=== PATIENT | female | born 1955 | race African-American/Black ===

== ENCOUNTER 2017-08-13 18:17 | Observation (INO) | payer OTHER ==
[~2017-08-13] VITALS: Ht 172.7 cm; Wt 110.0 kg
[2017-08-13] VITALS (7 sets, daily range): BP systolic 132–180; BP diastolic 62–85; PULSE 62–90; RESP 12–20; TEMP 98.1–98.2; O2SAT 97–100
[~2017-08-13 18:17] MED LIST: ASPI81CH6 CHEW; AZEL20CR TOPICAL; CLON0.1T PO; CROM100C PO; DOXY100C PO; ESTR0.62 VAGINAL; LEXA10TA PO; ROSU20 PO; VITA10003 PO
[2017-08-13] MEDS ORDERED: SODIUM CHLORIDE 0.9% FLUSH 10 ML FLUSH IVF PRN (18:45)
[2017-08-13] MEDS ORDERED: ASPIRIN 81 MG CHEW TAB PO ONE (18:45)
--- NOTE | 2017-08-13 18:45 | PD ---
HPI Chief Complaint: Pain: Acute or Chronic Time Seen by Provider: 18:37 Travel History International Travel<30 days: No Contact w/Intl Traveler<30days: No Traveled to known affect area: No History of Present Illness HPI 62-year-old female with history of hyperlipidemia presents for evaluation of chest pain. She reports over the past several months she has had intermittent left-sided chest pain which she describes as sharp, intermittent, usually lasting only for a few minutes at a time and coming on randomly. No obvious aggravating or relieving factors. Today she had similar pain that woke her up from sleep at 3 AM. She has had the pain intermittently throughout the day. Her primary care physician told her that if symptoms worsen that she should come to the emergency room and this is why she is here for evaluation today. Currently she is expensing mild soreness in the left side of her chest. She denies any cough, congestion, shortness of breath, nausea, vomiting, abdominal pain, leg swelling. She has not had a stress test since the . Her primary care physician was trying to set up an outpatient stress test for her in June but it never materialized. She has no other complaints at this time. She reports paternal history of coronary artery disease. PFSH Past Medical History Depression: Yes Heart Rhythm Problems: No Cancer: No Cardiac Catheterization: No Cardiovascular Problems: Yes (MUMUR - NO TREATMENT REQUIRED) High Cholesterol: Yes Congestive Heart Failure: No Diabetes: No Diminished Hearing: No Endocrine: No Genitourinary: Yes ("DIVERTICULITIS OF BLADDER") Hepatitis: No Hiatal Hernia: No Hypertension: No Immune Disorder: No Musculoskeletal: Yes (OSTEOARTHRITIS LEFT HIP, RIGHT HIP) Neurologic: No Psychiatric: Yes (ANXIETY & DEPRESSION ) Respiratory: No Myocardial Infarction: No Thyroid Disease: No Tubal Ligation: Yes Past Surgical History AICD: No Body Medical Devices: NONE Coronary Artery Bypass Graft: No Gynecologic Surgery: Yes (TUBAL LIGATION; HYSTERECTOMY) Hysterectomy: Yes Joint Replacement: No Pacemaker: No Other Surgery: Yes Social History Alcohol Use: Yes (RARE OCCASSIONS) Tobacco Use: No Substance Use: No Allergies-Medications (Allergen,Severity, Reaction): Coded Allergies: Sulfa (Sulfonamide Antibiotics) (Unverified Allergy, Severe, Rash, 08/13/17) doxycycline (Unverified Allergy, Mild, 06/10/17) RASH minocycline (Unverified Allergy, Mild, 23/18) RASH tigecycline (Unverified Allergy, Mild, 08/13/17) RASH Reported Meds & Prescriptions Reported Meds & Active Scripts Active Doxycycline Hyclate 100 Mg Cap 100 Mg PO DAILY Reported Claritin (Loratadine) 10 Mg Tablet 10 Mg PO DAILY Cromolyn Nasal Inh 5.2 Mg/Act [place] 1 [place] EACH NARE QID PRN Aspirin Low Dose (Aspirin) 81 Mg Chew 81 Mg CHEW DAILY Review of Systems Except as stated in HPI: all other systems reviewed are Neg Physical Exam Narrative GENERAL: Pleasant well-developed well-nourished female in no acute distress. SKIN: Warm and dry. HEAD: Atraumatic. Normocephalic. EYES: Pupils equal and round. No scleral icterus. No injection or drainage. ENT: No nasal bleeding or discharge. Mucous membranes pink and moist. NECK: Trachea midline. No JVD. CARDIOVASCULAR: Regular rate and rhythm. No murmur appreciated. RESPIRATORY: No accessory muscle use. Clear to auscultation. Breath sounds equal bilaterally. GASTROINTESTINAL: Abdomen soft, non-tender, nondistended. Hepatic and splenic margins not palpable. MUSCULOSKELETAL: No obvious deformities. There is no edema. There is a little bit of tenderness to palpation inferior to the left breast. NEUROLOGICAL: Awake and alert. No obvious cranial nerve deficits. Motor grossly within normal limits. Normal speech. PSYCHIATRIC: Appropriate mood and affect; insight and judgment normal. Data Data Last Documented VS Vital Signs Date Time Temp Pulse Resp B/P (MAP) Pulse Ox O2 Delivery O2 Flow Rate FiO2 08/13/17 18:47 97 Room Air 08/13/17 18:47 72 18 08/13/17 18:20 98.2 Orders Orders Electrocardiogram (08/13/17 18:37) Basic Metabolic Panel (Bmp) (08/13/17 18:37) Ckmb (Isoenzyme) Profile (08/13/17 18:37) Complete Blood Count With Diff (08/13/17 18:37) Magnesium (Mg) (08/13/17 18:37) Prothrombin Time / Inr (Pt) (08/13/17 18:37) Act Partial Throm Time (Ptt) (08/13/17 18:37) Troponin I (08/13/17 18:37) Chest, Single Ap (08/13/17 18:37) Ecg Monitoring (08/13/17 18:37) Bilateral Bp Monitoring (08/13/17 18:37) Iv Access Insert/Monitor (08/13/17 18:37) Oximetry (08/13/17 18:37) Oxygen Administration (08/13/17 18:37) Aspirin Chew (Aspirin Chew) (08/13/17 18:45) Sodium Chloride 0.9% Flush (Ns Flush) (08/13/17 18:45) CKMB (08/13/17 18:43) CKMB% (08/13/17 18:43) Admit Order (Ed Use Only) (08/13/17 20:10) Activity Bed Rest With Brp (08/13/17 20:10) Vital Signs (Adult) Q4H (08/13/17 20:10) Cardiac Rhythm .As Directed (08/13/17 20:10) Notify Dr: Other .PRN (08/13/17 20:10) Notify Parameters (08/13/17 20:10) Resp Oxygen Nasal Cannula (08/13/17 ) Ckmb (Isoenzyme) Profile (08/13/17 21:43) Ckmb (Isoenzyme) Profile (08/14/17 00:43) Troponin I (08/13/17 21:43) Troponin I (08/14/17 00:43) Electrocardiogram (08/13/17 21:43) Electrocardiogram (08/14/17 00:43) ^ Obtain (08/13/17 20:10) Sodium Chloride 0.9% Flush (Ns Flush) (08/13/17 20:15) Sodium Chloride 0.9% Flush (Ns Flush) (08/13/17 21:00) Npo After Midnight W/ Po Meds (08/14/17 Breakfast) Nitroglycerin 0.4 Mg Q5m X3 (08/13/17 20:30) Labs Laboratory Tests Test 08/13/17 18:43 White Blood Count 7.3 TH/MM3 Red Blood Count 4.39 MIL/MM3 Hemoglobin 13.5 GM/DL Hematocrit 38.4 % Mean Corpuscular Volume 87.5 FL Mean Corpuscular Hemoglobin 30.6 PG Mean Corpuscular Hemoglobin Concent 35.0 % Red Cell Distribution Width 14.0 % Platelet Count 266 TH/MM3 Mean Platelet Volume 7.9 FL Neutrophils (%) (Auto) 62.0 % Lymphocytes (%) (Auto) 31.4 % Monocytes (%) (Auto) 5.1 % Eosinophils (%) (Auto) 0.9 % Basophils (%) (Auto) 0.6 % Neutrophils # (Auto) 4.5 TH/MM3 Lymphocytes # (Auto) 2.3 TH/MM3 Monocytes # (Auto) 0.4 TH/MM3 Eosinophils # (Auto) 0.1 TH/MM3 Basophils # (Auto) 0.0 TH/MM3 CBC Comment DIFF FINAL Differential Comment Prothrombin Time 10.0 SEC Prothromb Time International Ratio 1.0 RATIO Activated Partial Thromboplast Time 28.0 SEC Blood Urea Nitrogen 18 MG/DL Creatinine 1.39 MG/DL Random Glucose 101 MG/DL Calcium Level 9.1 MG/DL Magnesium Level 2.0 MG/DL Sodium Level 140 MEQ/L Potassium Level 3.8 MEQ/L Chloride Level 105 MEQ/L Carbon Dioxide Level 30.6 MEQ/L Anion Gap 4 MEQ/L Estimat Glomerular Filtration Rate 47 ML/MIN Total Creatine Kinase 116 U/L Creatine Kinase MB LESS THAN 0.5 NG/ML Troponin I LESS THAN 0.02 NG/ML MDM Medical Decision Making Medical Screen Exam Complete: Yes Emergency Medical Condition: Yes Medical Record Reviewed: Yes Differential Diagnosis Angina, acute coronary syndrome, pleurisy, costochondritis, pericarditis, myocarditis, GERD, pneumothorax Narrative Course 62-year-old female with atypical chest pain intermittently for several months, worse today. The patient will be placed on ECG monitoring and pulse oximetry. A 12-lead EKG will be obtained. Plan is for lab work, chest x-ray. She will be given full dose aspirin. Initial lab work and imaging studies have been reviewed and found to be reassuring. I did discuss with her primary care physician who agrees with admission to the chest pain center for serial cardiac enzymes and rule out purposes. Discussed with the patient who is agreeable. Diagnosis Primary Impression: Chest pain Admitting Information Admitting Physician Requests: Rigoberto Durham Aug 13, 2017 18:45
[2017-08-13] MEDS ORDERED: CLAR10TA7 PO (18:56)
[2017-08-13] MEDS ORDERED: CROM5.2S4 EACH NARE (18:56)
--- NOTE | 2017-08-13 18:58 | RADRPT ---
EXAM DATE/TIME: 08/13/2017 18:45 [facility] COMPARISON: No previous studies available for comparison. INDICATIONS : Chest pain. MEDICAL HISTORY : None. SURGICAL HISTORY : None. ENCOUNTER: Initial ACUITY: 1 day PAIN SCORE: 10/10 LOCATION: Bilateral chest FINDINGS: The lungs are clear without infiltrate, nodule, or mass. There is no appreciable pleural effusion fo r technique. Heart and mediastinum are unremarkable. CONCLUSION: No acute cardiopulmonary disease. Gama Hurd MD on August 13, 2017 at 18:55 Board Certified Radiologist. This report was verified electronically.
[2017-08-13 19:05] LABS: AUTOMATED NEUTROPHIL # 4.5 TH/MM3 (1.8-7.7); BASOPHIL % 0.6 % (0.0-2.0); EOSINOPHIL # 0.1 TH/MM3 (0-0.4); EOSINOPHIL % 0.9 % (0.0-4.0); HEMATOCRIT 38.4 % (35.0-46.0); HEMOGLOBIN 13.5 GM/DL (11.6-15.3); LYMPH % 31.4 % (9.0-44.0); LYMPHOCYTE # 2.3 TH/MM3 (1.0-4.8); MEAN CELL VOLUME 87.5 FL (80.0-100.0); MEAN CORPUSCULAR HEMOGLOBIN 30.6 PG (27.0-34.0); MEAN PLATELET VOLUME 7.9 FL (7.0-11.0); MONO % 5.1 % (0.0-8.0); MONOCYTE # 0.4 TH/MM3 (0-0.9); PLATELET COUNT 266 TH/MM3 (150-450); RED BLOOD COUNT 4.39 MIL/MM3 (4.00-5.30); WHITE BLOOD COUNT 7.3 TH/MM3 (4.0-11.0)
[2017-08-13 19:21] LABS: BICARBONATE 30.6 MEQ/L (21.0-32.0); BLOOD UREA NITROGEN 18 MG/DL (7-18); CALCIUM 9.1 MG/DL (8.5-10.1); CHLORIDE 105 MEQ/L (98-107); CREATININE 1.39 MG/DL (0.50-1.00); GLOMERULAR FILTRATION RATE 47 ML/MIN (>89); GLUCOSE,RANDOM 101 MG/DL (74-106); SODIUM (NA) 140 MEQ/L (136-145)
[2017-08-13 19:26] LABS: TROPONIN I LESS THAN 0.02 NG/ML (0.02-0.05)
[2017-08-13] MEDS ORDERED: SODIUM CHLORIDE 0.9% FLUSH 10 ML FLUSH IV FLUSH PRN (20:15)
[2017-08-13] MEDS: NITROGLYCERIN 0.4 MG SL 25 TABS/BTL SL SCH ×3 (20:35→20:52)
[2017-08-13] MEDS: SODIUM CHLORIDE 0.9% FLUSH 10 ML FLUSH IV FLUSH SCH (21:15)
[2017-08-13 22:36] LABS: TROPONIN I LESS THAN 0.02 NG/ML (0.02-0.05)
[2017-08-14 00:22] VITALS: PULSE 62
[2017-08-14 02:33] LABS: TROPONIN I LESS THAN 0.02 NG/ML (0.02-0.05)
[2017-08-14 03:48] VITALS: BP 136/62; PULSE 60; RESP 16; TEMP 97.7; O2SAT 100
[2017-08-14 04:15] VITALS: PULSE 55
[2017-08-14 07:44] VITALS: BP 144/67; PULSE 60; RESP 18; TEMP 98.1; O2SAT 97
[2017-08-14 08:02] VITALS: PULSE 63
[2017-08-14] MEDS: SODIUM CHLORIDE 0.9% FLUSH 10 ML FLUSH IV FLUSH SCH (08:38)
[2017-08-14] MEDS ORDERED: ASPIRIN 325 MG TAB PO SCH (09:15)
--- NOTE | 2017-08-14 09:35 | HHI.HP ---
HPI Primary Care Physician Avis Rouse MD Chief Complaint Chest pain History of Present Illness This is a 62-year-old female with history of hyperlipidemia that presents with a complaint of 6 months of intermittent chest discomfort. Patient states she's had various types of chest discomfort over the 6 months. She saw nothing in particular bring on the discomfort. Is not found to be related to exertion. The discomforts have been tight, stabbing, pressure, and sharp. Yesterday morning she had a sharp discomfort on her left breast the last 5-6 hours. Denied shortness breath, nausea, or diaphoresis with the symptoms. She found nothing to worsen the symptoms. Nothing essentially helped her discomfort. States she saw her PCP about this in June and was going to be scheduled for a treadmill but that has not occurred yet. Denies history of CAD. Had a nonischemic stress test in 2005 at this facility. History of hyperlipidemia but Crestor was too expensive and was not covered under her insurance. A statin that she cannot recall the name caused arthralgias. Denies history of hypertension. States at times her blood pressure has been a little bit elevated but has lost weight and seemed to have improved. Denies recent illness. Denies fevers or chills. Review of Systems General: Patient denies fevers, chills recent, and recent travel HEENT: Patient denies headache, sore throat, difficulty swallowing. Cardiovascular: Has the chest discomfort as mentioned above. Denies sensation of heart beating rapidly or irregularly. No syncope. Denies diaphoresis. Respiratory: Denies shortness of breath or inspirational chest discomfort. Denies coughing wheezing or hemoptysis. GI: Patient denies nausea, vomiting, diarrhea, abdominal pain, bloody stools. Musculoskeletal: Patient denies joint pain or edema. Denies calf pain or edema. Neurovascular: Patient denies numbness, tingling, weakness in extremities. Denies headache. Endocrine: Denies polyuria and polydipsia. Hematologic: Denies easy bruising. Skin: Denies rash or itching. Past Family Social History Allergies: Coded Allergies: Sulfa (Sulfonamide Antibiotics) (Unverified Allergy, Severe, Rash, 08/13/17) doxycycline (Unverified Allergy, Mild, 06/10/17) RASH minocycline (Unverified Allergy, Mild, 08/13/17) RASH tigecycline (Unverified Allergy, Mild, 08/13/17) RASH Past Medical History Hyperlipidemia and postmenopausal acne which she states she takes doxycycline for. The remaining diagnosed hypertension. Denies diabetes or known CAD. Lifetime nonsmoker. Past Surgical History Tubal ligation, hysterectomy, and total left hip replacement. Reported Medications Reported Meds & Active Scripts Active Doxycycline Hyclate 100 Mg Cap 100 Mg PO DAILY Reported Aspirin Low Dose (Aspirin) 81 Mg Chew 81 Mg CHEW DAILY Active Ordered Medications Current Medications Medications (Trade) Dose Ordered Sig/Senait Route Start Time Stop Time Status Last Admin (NS Flush) 2 ml UNSCH PRN IVF 08/13/17 18:45 (NS Flush) 2 ml UNSCH PRN IV FLUSH 08/13/17 20:15 (NS Flush) 2 ml BID IV FLUSH 08/13/17 21:00 08/14/17 08:38 (Aspirin) 325 mg DAILY PO 08/14/17 09:15 UNV Family History She believes her father had heart disease. Physical Exam Vital Signs Vital Signs Date Time Temp Pulse Resp B/P (MAP) Pulse Ox O2 Delivery O2 Flow Rate FiO2 08/14/17 08:02 63 08/14/17 07:44 98.1 60 18 144/67 (92) 97 08/14/17 04:15 55 08/14/17 03:48 97.7 60 16 136/62 (86) 100 08/14/17 00:22 62 08/13/17 22:18 98.1 62 16 134/62 (86) 98 08/13/17 22:08 73 16 132/66 (88) 08/13/17 22:08 08/13/17 20:45 65 12 157/70 (99) 100 Room Air 08/13/17 20:30 97 08/13/17 20:00 73 149/67 (94) 08/13/17 18:47 97 Room Air 08/13/17 18:47 72 18 97 Room Air 08/13/17 18:20 98.2 90 20 180/85 (116) 97 Physical Exam GENERAL: This is a well-nourished, well-developed patient, in no apparent distress. Patient speaks in clear complete sentences. Patient is pleasant. HEENT: Head is atraumatic and normocephalic. Neck is supple without lymphadenopathy and trachea is midline. No JVD or carotid bruits. CARDIOVASCULAR: Regular rate and rhythm without murmurs, gallops, or rubs. RESPIRATORY: Clear to auscultation. Breath sounds equal bilaterally. No wheezes , rales, or rhonchi. Chest wall is nontender. No use of accessory muscles. GASTROINTESTINAL: Abdomen is nontender, nondistended. Abdomen soft. No obvious pulsatile mass or bruit. No CVA tenderness. Strong femoral pulses bilaterally. Normal bowel sounds in all quadrants. MUSCULOSKELETAL: Patient is moving upper and lower extremities freely. No calf tenderness or edema, no Homans sign. Strong pulses in upper and lower extremities. NEUROLOGICAL: Patient is alert and oriented. Cranial nerves 2-12 are grossly intact. No focal deficits and speech is clear. SKIN: No rash and turgor is normal. Laboratory Laboratory Tests Test 08/13/17 18:43 08/13/17 22:00 08/14/17 01:20 White Blood Count 7.3 Red Blood Count 4.39 Hemoglobin 13.5 Hematocrit 38.4 Mean Corpuscular Volume 87.5 Mean Corpuscular Hemoglobin 30.6 Mean Corpuscular Hemoglobin Concent 35.0 Red Cell Distribution Width 14.0 Platelet Count 266 Mean Platelet Volume 7.9 Neutrophils (%) (Auto) 62.0 Lymphocytes (%) (Auto) 31.4 Monocytes (%) (Auto) 5.1 Eosinophils (%) (Auto) 0.9 Basophils (%) (Auto) 0.6 Neutrophils # (Auto) 4.5 Lymphocytes # (Auto) 2.3 Monocytes # (Auto) 0.4 Eosinophils # (Auto) 0.1 Basophils # (Auto) 0.0 CBC Comment DIFF FINAL Differential Comment Prothrombin Time 10.0 Prothromb Time International Ratio 1.0 Activated Partial Thromboplast Time 28.0 Blood Urea Nitrogen 18 Creatinine 1.39 Random Glucose 101 Calcium Level 9.1 Magnesium Level 2.0 Sodium Level 140 Potassium Level 3.8 Chloride Level 105 Carbon Dioxide Level 30.6 Anion Gap 4 Estimat Glomerular Filtration Rate 47 Total Creatine Kinase 116 97 104 Creatine Kinase MB LESS THAN 0.5 0.5 Troponin I LESS THAN 0.02 LESS THAN 0.02 LESS THAN 0.02 Result Diagram: 08/13/17 [id number]/171842 Imaging Last 48 hours Impressions Chest X-Ray 08/13/17 183 Signed Impressions: Service Date/Time: Sunday, August 13, 2017 18:45 - CONCLUSION: No acute cardiopulmonary disease. Gama Hurd MD Course EKGs are sinus rhythm with nonspecific inferior and anterolateral T-wave changes. Caprini VTE Risk Assessment Caprini VTE Risk Assessment: Mod/High Risk (score >= 2) Caprini Risk Assessment Model Point Value = 1 Point Value = 2 Point Value = 3 Point Value = 5 Age 41-60 Minor surgery BMI > 25 kg/m2 Swollen legs Varicose veins or History of unexplained or recurrent spontaneous Oral contraceptives or hormone replacement Sepsis (< 1 month) Serious lung disease, including pneumonia (< 1 month) Abnormal pulmonary function Acute myocardial infarction Congestive heart failure (< 1 month) History of inflammatory bowel disease Medical patient at bed rest Age 61-74 Arthroscopic surgery Major open surgery (> 45 min) Laparoscopic surgery (> 45 min) Malignancy Confined to bed (> 72 hours) Immobilizing plaster cast Central venous access Age >= 75 History of VTE Family history of VTE Factor V Leiden Prothrombin [id number] Lupus anticoagulant Anticardiolipin antibodies Elevated serum homocysteine Heparin-induced thrombocytopenia Other congenital or acquired thrombophilia Stroke (< 1 month) Elective arthroplasty Hip, pelvis, or leg fracture Acute spinal cord injury (< 1 month) Prophylaxis Regimen Total Risk Factor Score Risk Level Prophylaxis Regimen 0-1 Low Early ambulation 2 Moderate Order ONE of the following: *Sequential Compression Device (SCD) *Heparin 5000 units SQ BID 3-4 Higher Order ONE of the following medications: *Heparin 5000 units SQ TID *Enoxaparin/Lovenox 40 mg SQ daily (WT < 150 kg, CrCl > 30 mL/min) *Enoxaparin/Lovenox 30 mg SQ daily (WT < 150 kg, CrCl > 10-29 mL/min) *Enoxaparin/Lovenox 30 mg SQ BID (WT < 150 kg, CrCl > 30 mL/min) AND/OR *Sequential Compression Device (SCD) 5 or more Highest Order ONE of the following medications: *Heparin 5000 units SQ TID (Preferred with Epidurals) *Enoxaparin/Lovenox 40 mg SQ daily (WT < 150 kg, CrCl > 30 mL/min) *Enoxaparin/Lovenox 30 mg SQ daily (WT < 150 kg, CrCl > 10-29 mL/min) *Enoxaparin/Lovenox 30 mg SQ BID (WT < 150 kg, CrCl > 30 mL/min) AND *Sequential Compression Device (SCD) Assessment and Plan Assessment and Plan * Chest pain: Patient has had serial cardiac enzymes and EKGs for ruling out purposes and will be seen by Dr. Gilman of cardiology and the chest and center. She will undergo a Arnaldo protocol ETT in a nonischemic will be discharged home with instructions to follow-up with PCP and that time she should discuss lipid management and blood pressure management. Return to ED for interval issues. * Hyperlipidemia: Discussed with PCP. She states that there was a statin that she did not tolerate secondary to arthralgias 3 states all of her joints were hurting. Insurance did not pay for Crestor. Currently not on medication for lipid management. Patient is stable at this time. She is agreeable to this plan. Arvin Du Aug 14, 2017 09:35
--- NOTE | 2017-08-14 10:14 | HHI.DCPOC ---
Discharge Care Plan Diagnosis: (1) Chest pain (2) Hyperlipidemia Goals to Promote Your Health * To prevent worsening of your condition and complications * To maintain your health at the optimal level Directions to Meet Your Goals Take your medications as prescribed Follow your dietary instruction Follow activity as directed Keep your appointments as scheduled Take your immunizations and boosters as scheduled If your symptoms worsen call your PCP, if no PCP go to Urgent Care Center or Emergency Room Smoking is Dangerous to Your Health. Avoid second hand smoke Call the 24-hour hour crisis hotline for domestic abuse at Arvin Du Aug 14, 2017 10:14
--- NOTE | 2017-08-14 10:19 | TR ---
Date Performed: 08/14/2017 Time Performed: 09:43:10 DOCTOR: Christian Gilman DRUG LIST: CLINICAL HISTORY: CHEST PAIN REASON FOR TEST: Chest pain REASON FOR ENDING: OBSERVATION: CONCLUSION: MAYA PROTOCOL ETT. NO CP. TEST STOPPED AFTER EXCEEDING GOAL HR SECONDARY TO SOB AND LEG FATIGUE.Maximum ZT=067 % Max HR Hbmvprzq=958.0% Maximum RZ=809/80 Total Exercise Time=4:59 COMMENTS: Conclusion: Normal treadmill exercise. No evidence of ischemia.
--- NOTE | 2017-08-14 14:13 | EKG ---
Date Performed: 08/14/2017 Time Performed: 01:30:59 PTAGE: 62 years EKG: Sinus rhythm POSSIBLE LEFT ATRIAL ENLARGEMENT POSSIBLE RIGHT VENTRICULAR CONDUCTION DELAY NONSPECIFIC T-WAVE ABNO RMALITY BORDERLINE ECG PREVIOUS TRACING : 08/13/2017 21.55 Since previous tracing, no significant change noted DOCTOR: Christian Gilman Interpretating Date/Time 08/14/2017 14:12:33
--- NOTE | 2017-08-14 14:15 | EKG ---
Date Performed: 08/13/2017 Time Performed: 21:55:23 PTAGE: 62 years EKG: Sinus rhythm WITH SINUS ARRHYTHMIA LEFT ATRIAL ENLARGEMENT POSSIBLE RIGHT VENTRICULAR CONDUCTION DELAY ABNORMAL E CG PREVIOUS TRACING : 08/13/2017 18.58 Since previous tracing, no significant change noted DOCTOR: Christian Gilman Interpretating Date/Time 08/14/2017 14:13:46
--- NOTE | 2017-08-14 14:16 | EKG ---
Date Performed: 08/13/2017 Time Performed: 18:58:35 PTAGE: 62 years EKG: Sinus rhythm POSSIBLE LEFT ATRIAL ENLARGEMENT POSSIBLE RIGHT VENTRICULAR CONDUCTION DELAY BORDERLINE ECG PREVIOUS TRACING : 04/12/2006 21.39 Since previous tracing, no significant change noted DOCTOR: Christian Gilman Interpretating Date/Time 08/14/2017 14:14:39
== END 2017-08-14 11:50 | disposition home or self-care (01) ==
LOC: NEPC 18:17 → NEDA 20:11 → NEPFCDU 22:15
DX: R07.89 Other chest pain (principal); E78.5 Hyperlipidemia, unspecified; I10 Essential (primary) hypertension; I49.9 Cardiac arrhythmia, unspecified; R94.31 Abnormal electrocardiogram [ECG] [EKG]; M16.11 Unilateral primary osteoarthritis, right hip; M16.12 Unilateral primary osteoarthritis, left hip; F41.9 Anxiety disorder, unspecified; F32.9 Major depressive disorder, single episode, unspecified; Z79.82 Long term (current) use of aspirin; Z96.642 Presence of left artificial hip joint; Z88.2 Allergy status to sulfonamides; Z88.1 Allergy status to other antibiotic agents
CPT/HCPCS: 71045; 80048; 82550; 82552; 83735; 84484; 85025; 85610; 85730; 93005; 93017; 99285; G0378